=== PATIENT | female | born 1985 | race African-American/Black ===

== ENCOUNTER 2018-05-25 20:23 | Emergency (ER) | payer OTHER ==
[~2018-05-25] VITALS: Ht 157.5 cm; Wt 84.4 kg
[2018-05-25] MEDS ORDERED: IV NORMAL SALINE 1000ML BAG 1,000 ML IV ONE (20:45)
--- NOTE | 2018-05-25 21:16 | PHYS DOC ---
Past Medical History Past Medical History: Bipolar, Schizophrenia Additional Past Medical Histor: epilepsy Adult General Chief Complaint Chief Complaint: SEIZURE HPI HPI Patient is a 32 year old female with a past medical history of epilepsy, bipolar disorder, schizophrenia who presents via EMS after having seizure activity. The patient notes she was talking to the police and they told her to "put her hands behind her back" the patient notes she then began having generalized tonic-clonic movements and as per her daughter they then opened the back door to a vehicle and pushed her into the vehicle where she proceeded to shake for 1-2 minutes on the back seat and then stopped spontaneously intervention. The patient notes she did not have loss of bowel or bladder during this event. The patient notes her last seizure was in August 2017. The patient takes Keppra, Topamax, Onfi for her epilepsy. The patient sees her neurologist Dr. Livingston monthly and last saw him today. Review of Systems Review of Systems Constitutional: Denies fever or chills [] Eyes: Denies change in visual acuity, redness, or eye pain [] HENT: Denies nasal congestion or sore throat [] Respiratory: Denies cough or shortness of breath [] Cardiovascular: Denies chest pain or palpitations[] GI: Denies abdominal pain, nausea, vomiting, bloody stools or diarrhea [] : Denies dysuria or hematuria [] Musculoskeletal: Denies back pain or joint pain [] Integument: Denies rash or skin lesions [] Neurologic: Denies headache, focal weakness or sensory changes [] Complete systems were reviewed and found to be within normal limits, except as documented in this note. Current Medications Current Medications Current Medications Medications (Trade) Dose Ordered Sig/Nader Start Time Stop Time Status Last Admin Dose Admin Albuterol/ Ipratropium (Duoneb) 3 ml 1X ONCE 05/25/18 21:30 05/25/18 21:31 UNV Sodium Chloride 1,000 ml @ 1,000 mls/hr 1X ONCE 05/25/18 20:45 05/25/18 21:44 UNV Physical Exam Physical Exam Constitutional: Well developed, well nourished, no acute distress, non-toxic appearance. [] HENT: Normocephalic, atraumatic, oropharynx moist, no oral exudates, nose normal. [] Eyes: PERRL, EOMI, conjunctiva normal, no discharge. [] Neck: Normal range of motion, no tenderness, supple, no meningismus. [] Cardiovascular:Heart rate regular rhythm, no murmur [] Lungs & Thorax: Bilateral breath sounds clear to auscultation [] Abdomen: soft, nondistended, no tenderness. [] Skin: Warm, dry, no erythema, no rash. [] Back: No tenderness, no CVA tenderness. [] Extremities: No tenderness, no cyanosis, no clubbing, ROM intact, no edema. [] Neurologic: Alert and oriented X 3, normal motor function, normal sensory function, no focal deficits noted, cranial nerves II-XII intact bilaterally. [] Psychologic: Affect normal, judgement normal, mood normal. [] Current Patient Data Lab Values Laboratory Tests Test 05/25/18 21:25 05/25/18 21:35 05/25/18 21:48 White Blood Count 6.3 x10^3/uL (4.0-11.0) Red Blood Count 4.18 x10^6/uL (3.50-5.40) Hemoglobin 11.8 g/dL (12.0-15.5) L Hematocrit 35.1 % (36.0-47.0) L Mean Corpuscular Volume 84 fL (79-100) Mean Corpuscular Hemoglobin 28 pg (25-35) Mean Corpuscular Hemoglobin Concent 34 g/dL (31-37) Red Cell Distribution Width 16.4 % (11.5-14.5) H Platelet Count 310 x10^3/uL (140-400) Neutrophils (%) (Auto) 50 % (31-73) Lymphocytes (%) (Auto) 41 % (24-48) Monocytes (%) (Auto) 5 % (0-9) Eosinophils (%) (Auto) 3 % (0-3) Basophils (%) (Auto) 1 % (0-3) Neutrophils # (Auto) 3.1 x10^3uL (1.8-7.7) Lymphocytes # (Auto) 2.6 x10^3/uL (1.0-4.8) Monocytes # (Auto) 0.3 x10^3/uL (0.0-1.1) Eosinophils # (Auto) 0.2 x10^3/uL (0.0-0.7) Basophils # (Auto) 0.1 x10^3/uL (0.0-0.2) Sodium Level 139 mmol/L (136-145) Potassium Level 3.2 mmol/L (3.5-5.1) L Chloride Level 104 mmol/L (98-107) Carbon Dioxide Level 21 mmol/L (21-32) Anion Gap 14 (6-14) Blood Urea Nitrogen 14 mg/dL (7-20) Creatinine 1.0 mg/dL (0.6-1.0) Estimated GFR (Cockcroft-Gault) 77.7 BUN/Creatinine Ratio 14 (6-20) Glucose Level 105 mg/dL (70-99) H Lactic Acid Level 1.1 mmol/L (0.4-2.0) Calcium Level 9.0 mg/dL (8.5-10.1) Magnesium Level 2.1 mg/dL (1.8-2.4) Total Bilirubin 0.2 mg/dL (0.2-1.0) Aspartate Amino Transferase (AST) 16 U/L (15-37) Alanine Aminotransferase (ALT) 31 U/L (14-59) Alkaline Phosphatase 77 U/L (46-116) Creatine Kinase 138 U/L (26-192) Total Protein 8.7 g/dL (6.4-8.2) H Albumin 3.9 g/dL (3.4-5.0) Albumin/Globulin Ratio 0.8 (1.0-1.7) L Ethyl Alcohol Level < 10 mg/dL (0-10) Urine Collection Type Unknown Urine Color Yellow Urine Clarity Clear Urine pH 6.0 Urine Specific Gurley 1.025 Urine Protein Negative mg/dL (NEG-TRACE) Urine Glucose (UA) Negative mg/dL (NEG) Urine Ketones (Stick) Negative mg/dL (NEG) Urine Blood Large (NEG) Urine Nitrite Negative (NEG) Urine Bilirubin Negative (NEG) Urine Urobilinogen Dipstick 1.0 mg/dL (0.2 mg/dL) Urine Leukocyte Esterase Negative (NEG) Urine RBC Rare /HPF (0-2) Urine WBC Occ /HPF (0-4) Urine Squamous Epithelial Cells Many /LPF Urine Bacteria Few /HPF (0-FEW) Urine Mucus Marked /LPF Urine Opiates Screen Neg (NEG) Urine Methadone Screen Neg (NEG) Urine Barbiturates Neg (NEG) Urine Phencyclidine Screen Neg (NEG) Urine Amphetamine/Methamphetamine Neg (NEG) Urine Benzodiazepines Screen Pos (NEG) Urine Cocaine Screen Neg (NEG) Urine Cannabinoids Screen Neg (NEG) Urine Ethyl Alcohol Neg (NEG) POC Urine HCG, Qualitative Hcg negative (Negative) Laboratory Tests 05/25/18 21:25 Laboratory Tests 05/25/18 21:25 EKG EKG [] Radiology/Procedures Radiology/Procedures [] Course & Med Decision Making Course & Med Decision Making 32-year-old female presents via EMS after procedure activity. Patient was talking to the police when she started having generalized tonic-clonic minutes. Patient was helped into the back of a car where she continued to have shaking for 1-2 minutes. Patient denies loss of bowel or bladder during this episode and has no recollection. Patient does have history of epilepsy controlled by Anaya Seth, on the and reports her last seizure was in August 2017. Labs were collected and reviewed. [] Dragon Disclaimer Dragon Disclaimer This electronic medical record was generated, in whole or in part, using a voice recognition dictation system. Departure Departure Impression: Primary Impression: Breakthrough seizure Additional Impression: Hypokalemia Disposition: 01 HOME, SELF-CARE Condition: IMPROVED Referrals: YONATHAN JONES MD (PCP) PAOLO AZUL MD Patient Instructions: Hypokalemia-Brief, Potassium Content of Foods, Seizure, Adult, [id number] Additional Instructions: Refrain from driving until you have been seizure free for 6 months or until cleared by your doctor. Increase your food to include foods that are rich in potassium. Problem Qualifiers YONATHAN AGARWAL DO May 25, 2018 21:16
[2018-05-25] MEDS ORDERED: IPRATRPIUM/ALBUTEROL 0.5/2.5MG 3 ML NEBU. NEB ONE (21:30)
[2018-05-25 21:41] LABS: BASO # 0.1 x10^3/uL (0.0-0.2); BASO % 1 % (0-3); EOS # 0.2 x10^3/uL (0.0-0.7); EOS % 3 % (0-3); HEMATOCRIT 35.1 % (36.0-47.0); HEMOGLOBIN 11.8 g/dL (12.0-15.5); LYMPH # 2.6 x10^3/uL (1.0-4.8); LYMPH % 41 % (24-48); MEAN CORPUSCULAR HEMOGLOBIN 28 pg (25-35); MEAN CORPUSCULAR HGB CONC 34 g/dL (31-37); MEAN CORPUSCULAR VOLUME 84 fL (79-100); MONO # 0.3 x10^3/uL (0.0-1.1); MONO % 5 % (0-9); NEUT # 3.1 x10^3uL (1.8-7.7); NEUT % 50 % (31-73); PLATELET COUNT 310 x10^3/uL (140-400); RED BLOOD COUNT 4.18 x10^6/uL (3.50-5.40); RED CELL DISTRIBUTION WIDTH 16.4 % (11.5-14.5); WHITE BLOOD COUNT 6.3 x10^3/uL (4.0-11.0)
[2018-05-25 21:51] LABS: GFR 77.7; POTASSIUM 3.2 mmol/L (3.5-5.1)
[2018-05-25 21:56] LABS: BILIRUBIN,URINE NEGATIVE (NEG); COLOR,URINE YELLOW; NITRITE,URINE NEGATIVE (NEG); PROTEIN,URINE NEGATIVE (NEG-TRACE)
[2018-05-25 21:58] LABS: ALBUMIN 3.9 g/dL (3.4-5.0); ALBUMIN/GLOBULIN RATIO 0.8 (1.0-1.7); MAGNESIUM 2.1 mg/dL (1.8-2.4); TOTAL BILIRUBIN 0.2 mg/dL (0.2-1.0); TOTAL PROTEIN 8.7 g/dL (6.4-8.2)
[2018-05-25 22:01] LABS: CLARITY,URINE CLEAR
[2018-05-25 22:07] LABS: AMPHETAMINE/METHAMPHETAMINE NEG (NEG); BACTERIA,URINE FEW /HPF (0-FEW); BARBITURATES NEG (NEG); BENZODIAZEPINES POS (NEG); CANNABINOIDS NEG (NEG); COCAINE NEG (NEG); METHADONE NEG (NEG); OPIATES NEG (NEG); PHENCYCLIDINE NEG (NEG); RBC,URINE RARE /HPF (0-2); SQUAMOUS EPITHELIAL CELL,UR MANY /LPF; WBC,URINE OCC /HPF (0-4)
[2018-05-25 22:15] VITALS: BP 114/70
[2018-05-25] MEDS ORDERED: POTASSIUM CHLORIDE 20 MEQ TABLET.ER. PO ONE (22:30)
== END 2018-05-25 22:30 | disposition home or self-care (01) ==
LOC: ER 20:23
DX: R56.9 Unspecified convulsions (principal); E87.6 Hypokalemia; F31.9 Bipolar disorder, unspecified; F20.9 Schizophrenia, unspecified; G40.909 Epilepsy, unspecified, not intractable, without status epilepticus
CPT/HCPCS: 36415; 80053; 80307; 81001; 81025; 82550; 83605; 83735; 85025; 99284; G0480; G0479

== ENCOUNTER 2019-04-28 16:01 | Emergency (ER) | payer MEDICARE, OTHER ==
[~2019-04-28] VITALS: Ht 152.4 cm; Wt 85.7 kg
[2019-04-28 16:01] VITALS: BP 102/65
--- NOTE | 2019-04-28 16:27 | PHYS DOC ---
Past Medical History Past Medical History: Bipolar, Seizure, Schizophrenia Additional Past Medical Histor: epilepsy (MORRIS BHARDWAJ APRN) Past Surgical History: Cholecystectomy, Tubal ligation (MORRIS BHARDWAJ APRN) Alcohol Use: None Drug Use: None (MORRIS BHARDWAJ APRN) Adult General Chief Complaint Chief Complaint: SEIZURE HPI HPI Patient is a 33 year old female with a history of bipolar, schizophrenia, seizures, who presents from [facility] by EMS for seizures. Patient states she went to [facility] to shop for her kids as well as get refills on her seizure medications, she states when she got to the pharmacy they told her they cannot refill one of her seizure medications. She states she told them she is going to have a seizure because she will miss today's evening dose of one of the seizure medications . She states [facility] and was brought to the ED today to be evaluated. She states the seizure lasted for a few seconds. She states she did not urinate on herself. She arrives in the ED very heated. She states she hates this state [facility] because of the rules they have regarding state insured patients. She states she wants to move out of this states. She appears to be in a manic state of bipolar as she speaks. She is denying any suicidal ideations though she keeps having flight of ideas. (MORRIS BHARDWAJ APRN) Review of Systems Review of Systems Constitutional: Denies fever or chills [] Eyes: Denies change in visual acuity, redness, or eye pain [] HENT: Denies nasal congestion or sore throat [] Respiratory: Denies cough or shortness of breath [] Cardiovascular: No additional information not addressed in HPI [] GI: Denies abdominal pain, nausea, vomiting, bloody stools or diarrhea [] : Denies dysuria or hematuria [] Musculoskeletal: Denies back pain or joint pain [] Integument: Denies rash or skin lesions [] Neurologic: Reports seizure. Denies headache, focal weakness or sensory changes [] All other systems were reviewed and found to be within normal limits, except as documented in this note. (MORRIS BHARDWAJ APRN) Allergies Allergies Allergies Coded Allergies Type Severity Reaction Last Updated Verified No Known Drug Allergies 05/25/18 No (YONATHAN AGARWAL DO) Physical Exam Physical Exam Constitutional: Well developed, well nourished, no acute distress, non-toxic appearance. [] HENT: Normocephalic, atraumatic, bilateral external ears normal, oropharynx moist, no oral exudates, nose normal. [] Eyes: PERRLA, EOMI, conjunctiva normal, no discharge. [] Neck: Normal range of motion, no tenderness, supple, no stridor. [] Cardiovascular:Heart rate regular rhythm, no murmur [] Lungs & Thorax: Bilateral breath sounds clear to auscultation [] Abdomen: Bowel sounds normal, soft, no tenderness, no masses, no pulsatile masses. [] Skin: Warm, dry, no erythema, no rash. [] Back: No tenderness, no CVA tenderness. [] Extremities: No tenderness, no cyanosis, no clubbing, ROM intact, no edema. [] Neurologic: Alert and oriented X 3, normal motor function, normal sensory function, no focal deficits noted. Cranial nerves II through XII intact Psychologic: Affect normal, judgement normal, mood normal. [] (MORRIS BHARDWAJ APRN) Current Patient Data Vital Signs Vital Signs Date Time Temp Pulse Resp B/P (MAP) Pulse Ox O2 Delivery O2 Flow Rate FiO2 04/28/19 16:01 98.7 91 20 102/65 (77) 98 Room Air 98.7 (YONATHAN AGARWAL DO) EKG EKG [] (MORRIS BHARDWAJ APRN) Radiology/Procedures Radiology/Procedures [] (MORRIS BHARDWAJ APRN) Course & Med Decision Making Course & Med Decision Making Pertinent Labs and Imaging studies reviewed. (See chart for details) This is a 33-year-old female patient presenting to the ED today from [facility] to be evaluated for seizure. On arrival to the ED patient is refusing any workup she states she was seen by her doctor as [facility] and had labs drawn, she is requesting to be discharged AMA. She is alert and oriented �4, able to make her own decisions. She was given the risk of leaving AMA including and disability. Please see history of present illness for further information regarding her seizure. Amari from the PAT team was also available to talk to patient, she had signed out AMA. (MORRIS BHARDWAJ APRN) Dragon Disclaimer Dragon Disclaimer This electronic medical record was generated, in whole or in part, using a voice recognition dictation system. (MORRIS BHARDWAJ APRN) Departure Departure Impression: Primary Impression: Seizure Disposition: 07 AGAINST MEDICAL ADVICE Condition: STABLE Referrals: YONATHAN JONES MD (PCP) Attending Signature Attending Signature I have reviewed the PA/ECOLOGICAL MODELER's note and plan of care. I was available for consultation as needed during the patient's visit in the emergency department. I agree with the clinical impression, plan, and disposition. (YONATHAN AGARWAL DO) MORRIS BHARDWAJ APRN Apr 28, 2019 16:27 YONATHAN AGARWAL DO Apr 28, 2019 17:30
== END 2019-04-28 16:44 | disposition left against medical advice (07) ==
LOC: ER 16:01
DX: G40.909 Epilepsy, unspecified, not intractable, without status epilepticus (principal); F31.9 Bipolar disorder, unspecified; Z90.49 Acquired absence of other specified parts of digestive tract; Z98.51 Tubal ligation status
CPT/HCPCS: 99283

== ENCOUNTER → 2020-02-29 | Outpatient (CLI) | payer MEDICARE, OTHER ==
--- NOTE | 2020-02-29 12:27 | KCIC ---
EXAM: Chest, 2 views. HISTORY: Dyspnea on exertion. COMPARISON: 07/09/2017 FINDINGS: 2 views of the chest are obtained. There is no infiltrate, pleural effusion or pneumothorax. The heart is normal in size. There is a left vagal nerve stimulator. There is a calcified granuloma overlying the right lower thorax. IMPRESSION: No acute pulmonary finding. Electronically signed by: Lucy Love MD (02/29/2020 12:25 PM) [id number]
== END | disposition home or self-care (01) ==
LOC: KCIC 10:46
PROVIDERS: ATTEND Family Medicine
DX: J84.10 Pulmonary fibrosis, unspecified (principal); R06.00 Dyspnea, unspecified
CPT/HCPCS: 71046

== ENCOUNTER → 2020-03-05 | Outpatient (CLI) | payer MEDICARE, OTHER ==
[~2020-03-05] MED LIST: HYDR25CA PO; PRED20TA PO; ZOLPIDEM 5 MG TABLET. PO ONE
--- NOTE | 2020-03-07 14:07 | SLEEP ---
DATE OF STUDY: 03/05/2020 OBJECTIVE: The patient is a 34-year-old female with history of seizures, who is complaining of excessive somnolence. She has also had observed apnea. Height 5 feet 2 inches, weight 195 pounds, body mass index 36, Hampton sleep score 18. INTERPRETATION: The sleep architecture is characterized by a sleep efficiency of 63% across the 7.8 hours of recording time. There is absence of slow wave and REM sleep. The sleep onset latency is 2.7 hours. Respiratory monitoring shows a total of 2 events for an apnea-hypopnea index of 0. The minimum oxygen saturation is 88%. There are no periodic limb movements of sleep or cardiac arrhythmias. IMPRESSION: Normal polysomnogram showing no evidence of sleep apnea, but the sleep architecture is disturbed with an absence of slow-wave and REM sleep. RECOMMENDATIONS: 1. Consider for evaluation and treatment of idiopathic or psychophysiological insomnia. 2. Keep in mind the possibility of narcolepsy, but this study shows insufficient sleep during the one night in the lab and narcolepsy is probably unlikely. 3. Also, consider the role of her anticonvulsants causing excessive somnolence. 4. The patient should also avoid sedatives and alcohol and pursue weight loss. Thank you for letting us help with the patient's care. KELLEY CORDOVA MD DR: CATHLEEN/jamie JOB#: [id number] / [id number] YONATHAN Alvarez MD
== END ==
LOC: SLPLAB 19:02
PROVIDERS: ATTEND Family Medicine
DX: G47.30 Sleep apnea, unspecified (principal)
CPT/HCPCS: 95810

== ENCOUNTER → 2020-03-21 | Outpatient (CLI) | payer MEDICARE, OTHER ==
[~2020-03-21] MED LIST changes: +IOHEXOL 350 MG/ML 100 ML VIAL. IV ONE; -ZOLPIDEM 5 MG TABLET. PO ONE
--- NOTE | 2020-03-21 16:03 | RAD ---
Examination: CT angiogram of the chest History: history of shortness of breath COMPARISON: None available Technique: Axial CT angiographic images of the chest were performed with IV contrast. Coronal and sagittal 3-D MIP reformats are performed Exposure: One or more of the following individualized dose reduction techniques were utilized for this examination: 1. Automated exposure control 2. Adjustment of the mA and/or kV according to patient size 3. Use of iterative reconstruction technique FINDINGS: The visualized thyroid gland grossly appears unremarkable. Central airways are patent. Mild cardiomegaly. The caliber of the aorta grossly appears unremarkable. There are filling defects identified in the left lower lobe, right lower lobe pulmonary arterial branches likely multiple pulmonary emboli. Mild patchy bibasilar lung airspace opacity likely atelectasis or infiltrates. Mild bilateral lung emphysematous changes. The visualized liver, spleen, adrenals grossly appears unremarkable. IMPRESSION: 1. Filling defects identified in the right and left lower lobe pulmonary arterial branches likely multiple pulmonary emboli. 2. Bibasilar lung airspace opacities likely atelectasis or infiltrates. FOR INTERNAL CODING PURPOSES Critical result: Findings discussed with YONATHAN JONES at 03/21/2020 3:49 PM. RESULT CODE: (C) Electronically signed by: Sudarshan White MD (03/21/2020 4:00 PM) [id number]
== END | disposition home or self-care (01) ==
LOC: CT 15:00
PROVIDERS: ATTEND Family Medicine
DX: I28.8 Other diseases of pulmonary vessels (principal); R06.00 Dyspnea, unspecified; I51.7 Cardiomegaly
CPT/HCPCS: 71275; Q9967

== ENCOUNTER 2020-03-24 08:41 | Emergency (ER) | payer MEDICARE, OTHER ==
[~2020-03-24] VITALS: Ht 157.5 cm; Wt 100.0 kg
[2020-03-24 09:05] VITALS: BP 118/79
[2020-03-24] MEDS ORDERED: PRED20TA PO (09:13)
[2020-03-24] MEDS ORDERED: HYDR25CA PO (09:13)
--- NOTE | 2020-03-24 09:14 | PHYS DOC ---
Past Medical History Past Medical History: Bipolar, Seizure, Schizophrenia Additional Past Medical Histor: epilepsy Past Surgical History: Cholecystectomy, Tubal ligation Smoking Status: Never Smoker Alcohol Use: None Drug Use: None General Adult EDM: Chief Complaint: SKIN RASH/ABSCESS HPI: HPI: Patient is a 34-year-old female who presents with a rash all over her body. She states few days ago she had a CT scan with IV contrast and the rash started shortly after that. She denies any lip or tongue swelling she denies any difficulty breathing. She has not taken anything at home to help with the rash. [] Review of Systems: Review of Systems: Constitutional: Denies fever or chills. [] Eyes: Denies change in visual acuity. [] HENT: Denies nasal congestion or sore throat. [] Respiratory: Denies cough or shortness of breath. [] Cardiovascular: Denies chest pain or edema. [] GI: Denies abdominal pain, nausea, vomiting, bloody stools or diarrhea. [] : Denies dysuria. [] Musculoskeletal: Denies back pain or joint pain. [] Integument: Reports rash as described in HPI] Neurologic: Denies headache, focal weakness or sensory changes. [] Endocrine: Denies polyuria or polydipsia. [] Lymphatic: Denies swollen glands. [] Psychiatric: Denies depression or anxiety. [] Heart Score: Risk Factors: Risk Factors: DM, Current or recent (<one month) smoker, HTN, HLP, family history of CAD, obesity. Risk Scores: Score 0 - 3: 2.5% MACE over next 6 weeks - Discharge Home Score 4 - 6: 20.3% MACE over next 6 weeks - Admit for Clinical Observation Score 7 - 10: 72.7% MACE over next 6 weeks - Early Invasive Strategies Current Medications: Current Medications Medications (Trade) Dose Ordered Sig/Nader Start Time Stop Time Status Last Admin Dose Admin Methylprednisolone Sodium Succinate (SOLU-Medrol 125MG VIAL) 125 mg 1X ONCE 03/24/20 09:15 03/24/20 09:16 UNV Allergies: Allergies: Allergies Coded Allergies Type Severity Reaction Last Updated Verified Iodinated Contrast Media Allergy Unknown HIVES 03/24/20 Yes Physical Exam: PE: Constitutional: Well developed, well nourished, no acute distress, non-toxic appearance. [] HENT: Normocephalic, atraumatic, bilateral external ears normal, oropharynx moist, no oral exudates, nose normal. [] Eyes: PERRLA, EOMI, conjunctiva normal, no discharge. [] Neck: Normal range of motion, no tenderness, supple, no stridor. [] Cardiovascular:Heart rate regular rhythm, no murmur [] Lungs & Thorax: Bilateral breath sounds clear to auscultation [] Abdomen: Bowel sounds normal, soft, no tenderness, no masses, no pulsatile masses. [] Skin: Diffuse. [] Back: No tenderness, no CVA tenderness. [] Extremities: No tenderness, no cyanosis, no clubbing, ROM intact, no edema. [] Neurologic: Alert and oriented X 3, normal motor function, normal sensory function, no focal deficits noted. [] Psychologic: Affect normal, judgement normal, mood normal. [] EKG: EKG: [] Radiology/Procedures: Radiology/Procedures: [] Course & Med Decision Making: Course & Med Decision Making Pertinent Labs and Imaging studies reviewed. (See chart for details) [] Dragon Disclaimer: Dragon Disclaimer: This electronic medical record was generated, in whole or in part, using a voice recognition dictation system. Departure Departure Impression: Primary Impression: Allergic urticaria Disposition: 01 HOME, SELF-CARE Condition: STABLE Referrals: YONATHAN JONES MD (PCP) Patient Instructions: Drug Rash, Rash Scripts Hydroxyzine Pamoate (VISTARIL) 25 Mg Capsule 25 MG PO Q6HRS PRN for ALLERGIES, #30 CAP Prov: SAMREEN DOBBS DO 03/24/20 Prednisone (PREDNISONE) 20 Mg Tablet 1 TAB PO TID PRN for Allergic reaction, #21 TAB Prov: SAMREEN DOBBS DO 03/24/20 Justicifation of Admission Dx: Justifications for Admission: Justification of Admission Dx: No SAMREEN DOBBS DO Mar 24, 2020 09:14
[2020-03-24] MEDS ORDERED: diphenhydrAMINE HCL 25 MG CAPSULE PO ONE (09:15)
[2020-03-24] MEDS ORDERED: methylPREDNISolone SOD SUCC PF 125 MG/2 ML VIAL. IM ONE (09:15)
== END 2020-03-24 09:35 | disposition home or self-care (01) ==
LOC: ER 08:41
DX: L50.0 Allergic urticaria (principal); F31.9 Bipolar disorder, unspecified; F20.9 Schizophrenia, unspecified; G40.909 Epilepsy, unspecified, not intractable, without status epilepticus; Z91.041 Radiographic dye allergy status
CPT/HCPCS: 96372; 99283; J2930; Q0163

== ENCOUNTER → 2020-04-05 | Outpatient (CLI) | payer MEDICARE, OTHER ==
[2020-03-24 09:05] VITALS: BP 118/79
[~2020-04-05] MED LIST changes: -IOHEXOL 350 MG/ML 100 ML VIAL. IV ONE
[2020-04-11 06:13] LABS: ANTITHROMBIN III SEE SEPARATE REPORT; PROTEIN C ACTIVITY SEE SEPARATE REPORT; PROTEIN S ACTIVITY SEE SEPARATE REPORT
== END | disposition home or self-care (01) ==
LOC: LAB 13:37
PROVIDERS: ATTEND Internal Medicine Pulmonary Disease
DX: I26.99 Other pulmonary embolism without acute cor pulmonale (principal)
CPT/HCPCS: 85300; 85302; 85306

== ENCOUNTER → 2020-08-29 | Outpatient (CLI) | payer MEDICARE, OTHER ==
--- NOTE | 2020-09-02 14:56 | CARD ---
MR#: [id number] Date of Study: 08/29/2020 Ordering Physician: HUY ALVARADO, Referring Physician: HUY ALVARADO, Tech: Hyacinth Mireles [facility] APPROVED REPORT EXAM: Two-dimensional and M-mode echocardiogram with Doppler and color Doppler. Other Information Quality : FairHR: 60bpm Rhythm : NSR INDICATION Dyspnea 2D DIMENSIONS Left Atrium(2D)3.3 (1.6-4.0cm)IVSd1.3 (0.7-1.1cm) Aortic Root(2D)2.8 (2.0-3.7cm)LVDd2.7 (3.9-5.9cm) PWd1.2 (0.7-1.1cm) Aortic Valve AoV Peak Bakari.94.3cm/sAoV VTI25.6cm AO Peak GR.3.6mmHgLVOT Peak Bakari.77.7cm/s LVOT VTI 19.82cmAO Mean GR.2mmHg Mitral Valve MV E Vhrqgvbk30.8cm/sMV DECEL [id number] MV A Lnmjyicg24.5cm/sMV TYR54ox E/A Ratio1.7MVA (PHT)3.23cm2 Pulmonary Valve PV Peak Urywsznx66.1cm/sPV Peak Grad.3mmHg Tricuspid Valve TR P. Ttpwginv553so/sTR Peak Gr.31mmHg Pulmonary Vein S1 Zfiweqpu04.7cm/sD2 Fyauggoj55.8cm/s PVa [id number] LEFT VENTRICLE The left ventricle is normal size. There is mild concentric left ventricular hypertrophy. The left ve ntricular systolic function is normal. The ejection fraction is 60%. There is normal LV segmental wal l motion. The left ventricular diastolic function and filling is normal for age. RIGHT VENTRICLE The right ventricle is normal size. There is normal right ventricular wall thickness. The right ventr icular systolic function is normal. ATRIA The left atrium size is normal. The right atrium size is normal. The interatrial septum is intact wit h no evidence for an atrial septal defect or patent foramen ovale as noted on 2-D or Doppler imaging. AORTIC VALVE The aortic valve is normal in structure and function. Doppler and Color Flow revealed no significant aortic regurgitation. There is no significant aortic valvular stenosis. MITRAL VALVE The mitral valve is normal in structure and function. There is no evidence of mitral valve prolapse. There is no mitral valve stenosis. Doppler and Color-flow revealed mild mitral regurgitation. TRICUSPID VALVE The tricuspid valve is normal in structure and function. Doppler and Color Flow revealed trace tricus pid valve regurgitation. Estimated PAP 36 mmHg. PULMONIC VALVE The pulmonary valve is normal in structure and function. Doppler and Color Flow revealed trace pulmon ic valvular regurgitation. GREAT VESSELS The aortic root is normal in size. The ascending aorta is normal in size. The pulmonary artery is nor mal. The IVC is normal in size and collapses >50% with inspiration. PERICARDIAL EFFUSION There is no evidence of significant pericardial effusion. Critical Notification Critical Value: No <Conclusion> The left ventricular systolic function is normal. The ejection fraction is 60%. There is normal LV segmental wall motion. Trace tricuspid valve regurgitation. Estimated PAP 36 mmHg. There is no evidence of significant pericardial effusion. Signed by : Markel Main, Electronically Approved : 09/02/2020 14:56:02
== END ==
LOC: ECHO 09:32
PROVIDERS: ATTEND Internal Medicine Pulmonary Disease
DX: I34.0 Nonrheumatic mitral (valve) insufficiency (principal); R06.02 Shortness of breath
CPT/HCPCS: 93306

== ENCOUNTER → 2021-04-23 | Outpatient (CLI) | payer MEDICARE, OTHER ==
[~2021-04-23] MED LIST changes: +CLOB10TA PO; +DOCU100C28 PO; +ESCI10TA90 PO; +IBUP-1060 PO; +LEVE750T41 PO; +LEVO100T5 PO; +OXYC1TAB15 PO; +RIVA20TA2 PO; +ROSU10TA26 PO; +TOPI50TA8 PO
--- NOTE | 2021-04-24 15:00 | NUR ---
Called Shanon @ Dr Vazquez's office to notify patient is covid positive. Shanon is to call the patient and make sure she quarantines for 2 weeks. As long as patient is asymptomatic, okay to reschedule in 30 days with no retest.
== END ==
LOC: LAB 09:06
PROVIDERS: ATTEND Obstetrics & Gynecology
DX: Z01.812 Encounter for preprocedural laboratory examination (principal); Z20.822 Contact with and (suspected) exposure to COVID-19; N92.0 Excessive and frequent menstruation with regular cycle
CPT/HCPCS: U0003; U0005

== ENCOUNTER 2021-04-25 08:39 | Day surgery (SDC) | payer MEDICARE, OTHER ==
[~2021-04-25] VITALS: Ht 157.5 cm; Wt 94.5 kg
[~2021-04-25 08:39] MED LIST changes: -IBUP-1060 PO; -OXYC1TAB15 PO
--- NOTE | 2021-04-25 09:10 | PDOC1 ---
STUDENT SERVICES COORDINATOR H&P Date of Admission: Date of Admission: History of Present Illness: 35y presents for scheduled surgery. The pt was referred by her PCP Dr. Franklin for an endometrial ablation. She has had heavy bleeding with clots for the last 6-7 yrs. She was initially planning to have surgical intervention, but her PCP changed over the yrs. She began seeing a PCP at since her seizure were being managed at the same institute. At the jtac started her on OCPs which ultimately lead to a PE. She had an u/s (03/28/21) revealing an uterus measuring 12.3 x 4.9 x 4.4 cm. PMH: Seizure, Pulmonary embolus, Bipolar disorder with schizoaffective features, High cholesterol, Migraine headaches, Hypothyroidism, Morbid obesity, Major depression. PSH: Gallbladder , Brain Surgery Meds: escitalopram, rosuvastatin, Xarelto, Levothyroxine, Crestor, Keppra, Onfi, Topamax All: seizure meds (doesn't know the name), IV dye, penicillin, Depakote OBHx: 1st 7 month (complicated by seizures, ?PRES), TSVD x 3. Car Seat Maker: Periods : regular. control BTL. Menarche 12yo. SH: no tob, no EtOH FH: Allergies, Arthritis, Diabetes, HTN, Leukemia, Migaraine, Stomach Ulcer, Asthma Allergies: Coded Allergies: Iodinated Contrast Media (Verified Allergy, Intermediate, HIVES, 04/22/21) Penicillins (Verified Allergy, Intermediate, Hives, 04/22/21) divalproex sodium (Verified Allergy, Intermediate, Hives, 04/22/21) Physical Exam: PE: GENERAL: No apparent distress. Alert and oriented. HEENT: Head normocephalic, atraumatic. NECK: Supple LUNGS: Clear to auscultation. HEART: RRR, S1, S2 present, pulses intact ABDOMEN: Soft, positive bowel sounds. EXTREMITIES: No cyanosis or edema. NEUROLOGIC: Normal speech, normal tone PSYCHIATRIC: Normal affect, normal mood. SKIN: No ulceration. Assessment & Plan: A/P 35y with menorrhagia 1.) Menorrhagia - for last 6-7 yrs. Developed PE on medical management. Scheduled for ablation 2.) H/o PE - on Xarelto 3.) Seizure do - per neurology 4.) Schizophrenia, Bipolar, depression 5.) Hypothyroidism 6.) Contraception - BTL 7.) Car Seat Maker screening - pap(02/12/21) YONATHAN Merritt MD Apr 25, 2021 09:10
[2021-04-25] MEDS ORDERED: LIDOCAINE 2% PF 5 ML VIAL. ONE (09:52)
[2021-04-25] MEDS ORDERED: PROPOFOL 10 MG/ML (20ML) VIAL. IV ONE (09:52)
[2021-04-25] MEDS ORDERED: ONDANSETRON PF 4 MG/2 ML VIAL. ONE (09:52)
[2021-04-25] MEDS ORDERED: DEXAMETHASONE SOD PHOS 4 MG/ML VIAL ONE (09:52)
[2021-04-25] MEDS ORDERED: fentaNYL PF VIAL 100 MCG/2 ML VIAL ONE ×2 (09:53→12:00)
[2021-04-25] MEDS ORDERED: MIDAZOLAM HCL/PF 2 MG/2 ML VIAL. ONE (09:53)
[2021-04-25] MEDS ORDERED: SEVOFLURANE 61 TO 120 MINUTES. IH ONE (10:58)
[2021-04-25] MEDS ORDERED: IBUP-1060 PO (11:43)
[2021-04-25] MEDS ORDERED: OXYC1TAB15 PO (11:43)
[2021-04-25] MEDS ORDERED: oxyCODONE/APAP 5/325 1 TAB TABLET PO ONE (12:00)
[2021-04-25] MEDS: fentaNYL PF VIAL 100 MCG/2 ML VIAL IVP PRN ×2 (12:00→12:06)
[2021-04-25 12:02] VITALS: BP 115/69
--- NOTE | 2021-04-25 12:05 | PDOC4 ---
OPERATIVE NOTE: PreOp Dx: 1.) Menorrhagia, 2.) H/o PE, 3.) Seizure do, 4.) Schizophrenia, 5.) Bipolar, 6.) depression, 7.) Hypothyroidism Procedure: H/S, D&C, planned Novasure ablation Surgeon: Ebony Garnica Anesthesia: LMA EBL: 50 cc Fluids: 500 cc UOP: 30 cc Complication: Novasure would not expand when opened. This was either due to the novause being unable to reach the fundus and opening in the cervix or a false path was created. Fluid deficit 1150 by end of case. Findings: benign appearing endometrium, sound 12cm dimensions 5.5 length Path: endometrial curetting YONATHAN GARNICA MD Apr 25, 2021 12:05
[2021-04-25] MEDS ORDERED: PROCHLORPERAZINE 10 MG/2 ML VIAL. IVP PRN (12:15)
[2021-04-25] MEDS ORDERED: fentaNYL PF VIAL 100 MCG/2 ML VIAL IVP PRN (12:15)
[2021-04-25] MEDS ORDERED: IV RINGERS,LACTATED 1000ML 1,000 ML IV SCH (12:15)
[2021-04-25] MEDS ORDERED: HYDROmorphone 2 MG/ML VIAL IVP PRN (12:15)
[2021-04-25] MEDS ORDERED: MORPHINE SULFATE 2 MG/ML INJ. IVP PRN (12:15)
--- NOTE | 2021-04-25 15:52 | OP ---
DATE OF SURGERY: 04/25/2021 PREOPERATIVE DIAGNOSES: 1. Menorrhagia. 2. History of pulmonary embolism. 3. Seizure disorder. 4. Schizophrenia. 5. Bipolar disorder. 6. Depression. 7. Hypothyroidism. POSTOPERATIVE DIAGNOSES: 1. Menorrhagia. 2. History of pulmonary embolism. 3. Seizure disorder. 4. Schizophrenia. 5. Bipolar disorder. 6. Depression. 7. Hypothyroidism. PROCEDURES: Hysteroscopy, D and C with planned NovaSure ablation. SURGEON: Andrew Vazquez MD ANESTHESIA: LMA. ESTIMATED BLOOD LOSS: 50 mL. FLUIDS: 500 mL. URINE OUTPUT: 30 mL. COMPLICATIONS: NovaSure device would not expand when placed. This could be either due to the NovaSure not reaching the fundus and opening in the cervix or potentially a false pathway was created with the dilators. It was also noted that the fluid deficit was found to be 1150 mL by the end of the case. FINDINGS: Benign-appearing endometrium. Uterus sounded to 12 cm with a length ultimately of 5.5 cm. PATHOLOGY: Endometrial curettings. DESCRIPTION OF THE PROCEDURE: The patient was taken to the operating room where LMA was placed without difficulty. The patient was prepped and draped in a normal sterile fashion. A posterior weighted speculum was placed in the vagina and a right angle retractor was used to visualize the anterior lip of the cervix. The anterior lip of cervix was then grasped with a single-tooth tenaculum. The cervix was measured to be roughly 6.5 cm. The sound was placed to the uterine fundus and found to be approximately 12 cm. At that point, a hysteroscope was then placed. The endometrium appeared benign. At that point, the hysteroscope was removed and a curetting was performed in all 4 quadrants. The specimen was sent to pathology. At that point, the NovaSure was attempted to be placed, but the cervix required additional dilation to allow for the NovaSure to be placed. Once this had been performed, the NovaSure was then introduced into the cervix. Once it was opened, the width would not expand beyond 1 cm. This had me concerned that the NovaSure was either in the cervical canal or false pathway had been created. At that point, the NovaSure was removed and the hysteroscope was replaced. There were no obvious areas of a false pathway or of a perforation, so again the NovaSure was placed. Again, deploying the NovaSure did not expand beyond 1 cm. Also, at that point, it was noted that the fluid deficit was increasing. It was felt that the best option at that point was to terminate the procedure. At that point, the NovaSure was removed as well as the hysteroscope, the tenaculum was also removed with good hemostasis noted. At that point, the patient was brought to the recovery room in stable condition. TIANA/MILDRED/YASEMIN DR: Ariella TID: [id number] MTDD
--- NOTE | 2021-04-29 17:07 | PATHOLOGY ---
[facility] Accession Number: [id number] . 01 Material submitted: . endometrium - ENDOMETRIAL CURETTINGS . 01 Clinical history: . HYSTEROSCOPY D+C UNK . 02 Diagnosis: Endometrial curettings: - Secretory endometrium. ([facility]; 04/28/2021) [facility] 04/28/2021 1658 Local . 02 Comment: There is no atypia or evidence of malignancy. ([facility]; 04/28/2021) . 02 Electronically signed: . Natan Pinedo MD, Pathologist NPI- [id number] . 01 Gross description: . Received in formalin labeled "Brown, Yancy, endometrial curettings" is a 2.8 x 2.0 x 0.5 cm aggregate of red-brown friable soft tissue fragments. The specimen is submitted entirely in A1-A2. ([facility]; 04/26/2021) [facility] 04/26/2021 1123 Local . 02 Pathologist provided ICD-10: Z03.89 . 02 CPT . 301764 Specimen Comment: A courtesy copy of this report has been sent to [phone], [phone] Specimen Comment: [id number] Specimen Comment: Report sent to / DR JONES Performed at: 01 [facility] [address], [place] [id number] MD Roque Cifuentes MD Phone: [phone] Performed at: 02 [facility] [address] [place], [place] [id number] MD Natan Pinedo MD Phone: [phone]
== END 2021-04-25 12:34 | disposition home or self-care (01) ==
LOC: SURG 08:39
PROVIDERS: ATTEND Obstetrics & Gynecology
DX: N92.0 Excessive and frequent menstruation with regular cycle (principal); F20.9 Schizophrenia, unspecified; G40.909 Epilepsy, unspecified, not intractable, without status epilepticus; F32.9 Major depressive disorder, single episode, unspecified; E03.9 Hypothyroidism, unspecified; I10 Essential (primary) hypertension; E78.00 Pure hypercholesterolemia, unspecified; E66.9 Obesity, unspecified; M19.90 Unspecified osteoarthritis, unspecified site; Z79.899 Other long term (current) drug therapy; Z98.890 Other specified postprocedural states; Z20.822 Contact with and (suspected) exposure to COVID-19
CPT/HCPCS: 58558; 81025; 87426; A4930; J1100; J2250; J2405; J2704; J3010; U0003; U0005

== ENCOUNTER → 2021-05-28 | Outpatient (CLI) | payer MEDICARE, OTHER ==
[~2021-05-28] MED LIST changes: +IBUP-1060 PO; +OXYC1TAB15 PO
== END ==
LOC: LAB 09:50
PROVIDERS: ATTEND Obstetrics & Gynecology
DX: Z01.812 Encounter for preprocedural laboratory examination (principal); Z20.822 Contact with and (suspected) exposure to COVID-19
CPT/HCPCS: U0003; U0005

== ENCOUNTER 2021-05-30 06:08 | Observation (INO) | payer MEDICARE, OTHER ==
[~2021-05-30] VITALS: Ht 157.5 cm; Wt 94.0 kg
[2021-05-30] VITALS (10 sets, daily range): BP systolic 97–116; BP diastolic 65–71
[~2021-05-30 06:08] MED LIST changes: +HYDROmorphone 2 MG/ML VIAL IVP PRN; +IV RINGERS,LACTATED 1000ML 1,000 ML IV SCH; +MORPHINE SULFATE 2 MG/ML INJ. IVP PRN; +PROCHLORPERAZINE 10 MG/2 ML VIAL. IVP PRN; +fentaNYL PF VIAL 100 MCG/2 ML VIAL IVP PRN
[2021-05-30 06:50] LABS: BASO # 0.2 x10^3/uL (0.0-0.2); BASO % 3 % (0-3); EOS # 0.3 x10^3/uL (0.0-0.7); EOS % 5 % (0-3); HEMATOCRIT 28.6 % (36.0-47.0); HEMOGLOBIN 9.1 g/dL (12.0-15.5); LYMPH # 2.4 x10^3/uL (1.0-4.8); LYMPH % 38 % (24-48); MEAN CORPUSCULAR HEMOGLOBIN 25 pg (25-35); MEAN CORPUSCULAR HGB CONC 32 g/dL (31-37); MEAN CORPUSCULAR VOLUME 78 fL (79-100); MONO # 0.4 x10^3/uL (0.0-1.1); MONO % 6 % (0-9); NEUT % 48 % (31-73); PLATELET COUNT 263 x10^3/uL (140-400); RED BLOOD COUNT 3.65 x10^6/uL (3.50-5.40); RED CELL DISTRIBUTION WIDTH 18.3 % (11.5-14.5); WHITE BLOOD COUNT 6.2 x10^3/uL (4.0-11.0)
[2021-05-30 06:57] LABS: CALCIUM 8.6 mg/dL (8.5-10.1); CREATININE 1.1 mg/dL (0.6-1.0); GFR 68.4; POTASSIUM 3.6 mmol/L (3.5-5.1)
[2021-05-30] MEDS ORDERED: METHYLENE BLUE 0.5% 10ml AMPULE. ONE (06:57)
[2021-05-30] MEDS ORDERED: PROPOFOL 10 MG/ML (20ML) VIAL. IV ONE (07:24)
[2021-05-30] MEDS ORDERED: LIDOCAINE 2% PF 5 ML VIAL. ONE (07:24)
[2021-05-30] MEDS ORDERED: fentaNYL PF VIAL 250 MCG/5 ML VIAL ONE (07:25)
[2021-05-30] MEDS ORDERED: MIDAZOLAM HCL/PF 2 MG/2 ML VIAL. ONE (07:25)
[2021-05-30] MEDS ORDERED: ROCURONIUM 50 MG/5 ML VIAL. ONE ×2 (07:25→09:08)
--- NOTE | 2021-05-30 07:49 | PDOC1 ---
CLAIMS ADJUSTER H&P Date of Admission: Date of Admission: History of Present Illness: 35y presents for scheduled surgery. The pt was referred for heavy bleeding with clots for the last 6-7 yrs. At the desktop analyst started her on OCPs which ultimately lead to a PE. She had an u/s (03/28/21) revealing an uterus measuring 12.3 x 4.9 x 4.4 cm. She ultimately was scheduled for an Ablation on 04/25/21 but the procedure could not be activated. At her f/u appt the decision was made for a LAVH. PMH: Seizure, Pulmonary embolus, Bipolar disorder with schizoaffective features, High cholesterol, Migraine headaches, Hypothyroidism, Morbid obesity, Major depression. PSH: Gallbladder , Brain Surgery Meds: escitalopram, rosuvastatin, Xarelto, Levothyroxine, Crestor, Keppra, Onfi, Topamax All: seizure meds (doesn't know the name), IV dye, penicillin, Depakote OBHx: 1st 7 month (complicated by seizures, ?PRES), TSVD x 3. Core Sucker: Periods : regular. control BTL. Menarche 12yo. SH: no tob, no EtOH FH: Allergies, Arthritis, Diabetes, HTN, Leukemia, Migraine, Stomach Ulcer, Asthma Medications: Meds: Current Medications Medications (Trade) Dose Ordered Sig/Nader Route PRN Reason Start Time Stop Time Status Last Admin Dose Admin Ringer's Solution 1,000 ml @ 30 mls/hr Q24H IV 05/30/21 06:00 05/30/21 17:59 05/30/21 07:08 Allergies: Coded Allergies: Iodinated Contrast Media (Verified Allergy, Intermediate, HIVES, 05/30/21) Penicillins (Verified Allergy, Intermediate, Hives, 05/30/21) divalproex sodium (Verified Allergy, Intermediate, Hives, 05/30/21) Physical Exam: Vital Signs: Vital Signs Date Time Temp Pulse Resp B/P (MAP) Pulse Ox O2 Delivery O2 Flow Rate FiO2 05/30/21 06:29 97.0 79 20 94/65 97 Room Air 97.0 PE: GENERAL: No apparent distress. Alert and oriented. HEENT: Head normocephalic, atraumatic. NECK: Supple LUNGS: Clear to auscultation. HEART: RRR, S1, S2 present, pulses intact ABDOMEN: Soft, positive bowel sounds. EXTREMITIES: No cyanosis or edema. NEUROLOGIC: Normal speech, normal tone PSYCHIATRIC: Normal affect, normal mood. SKIN: No ulceration. Labs: Laboratory Tests Test 05/30/21 06:23 05/30/21 06:32 POC Urine HCG, Qualitative Hcg negative (Negative) White Blood Count 6.2 x10^3/uL (4.0-11.0) Red Blood Count 3.65 x10^6/uL (3.50-5.40) Hemoglobin 9.1 g/dL (12.0-15.5) L Hematocrit 28.6 % (36.0-47.0) L Mean Corpuscular Volume 78 fL (79-100) L Mean Corpuscular Hemoglobin 25 pg (25-35) Mean Corpuscular Hemoglobin Concent 32 g/dL (31-37) Red Cell Distribution Width 18.3 % (11.5-14.5) H Platelet Count 263 x10^3/uL (140-400) Neutrophils (%) (Auto) 48 % (31-73) Lymphocytes (%) (Auto) 38 % (24-48) Monocytes (%) (Auto) 6 % (0-9) Eosinophils (%) (Auto) 5 % (0-3) H Basophils (%) (Auto) 3 % (0-3) Neutrophils # (Auto) 3.0 x10^3/uL (1.8-7.7) Lymphocytes # (Auto) 2.4 x10^3/uL (1.0-4.8) Monocytes # (Auto) 0.4 x10^3/uL (0.0-1.1) Eosinophils # (Auto) 0.3 x10^3/uL (0.0-0.7) Basophils # (Auto) 0.2 x10^3/uL (0.0-0.2) Sodium Level 139 mmol/L (136-145) Potassium Level 3.6 mmol/L (3.5-5.1) Chloride Level 105 mmol/L (98-107) Carbon Dioxide Level 23 mmol/L (21-32) Anion Gap 11 (6-14) Blood Urea Nitrogen 6 mg/dL (7-20) L Creatinine 1.1 mg/dL (0.6-1.0) H Estimated GFR (Cockcroft-Gault) 68.4 Glucose Level 114 mg/dL (70-99) H Calcium Level 8.6 mg/dL (8.5-10.1) Laboratory Tests 05/30/21 06:32 Laboratory Tests 05/30/21 06:32 Laboratory Tests 05/30/21 06:32 Assessment & Plan: A/P 35y with menorrhagia 1.) Menorrhagia - for last 6-7 yrs. Developed PE on medical management. Attempted ablation 04/25/21. Scheduled for 2.) H/o PE - on Xarelto 3.) Seizure do - per neurology 4.) Schizophrenia, Bipolar, depression 5.) Hypothyroidism 6.) Contraception - BTL 7.) Core Sucker screening - pap(02/12/21) YONATHAN Merritt MD May 30, 2021 07:49
[2021-05-30] MEDS ORDERED: ONDANSETRON PF 4 MG/2 ML VIAL. ONE (08:56)
[2021-05-30] MEDS ORDERED: DEXAMETHASONE SOD PHOS 4 MG/ML VIAL ONE (08:56)
[2021-05-30] MEDS ORDERED: GLYCOPYRROLATE 1 MG/5 ML VIAL. ONE (08:57)
[2021-05-30] MEDS ORDERED: NEOSTIGMINE METHYLSULFATE 5 MG/5 ML SYRINGE. ONE (08:57)
[2021-05-30] MEDS ORDERED: ePHEDrine PF IN SALINE 50 MG/10 ML SYRINGE. IV ONE (09:09)
[2021-05-30] MEDS ORDERED: PHENYLEPHRINE in 0.9% NACL PF 1 MG/10 ML SYRINGE. IV ONE (09:09)
[2021-05-30] MEDS ORDERED: PHENYLEPHRINE 10 MG/ML VIAL. ONE (09:28)
[2021-05-30] MEDS ORDERED: SUGAMMADEX SODIUM 200 MG/2 ML VIAL. IVP ONE (10:00)
[2021-05-30] MEDS ORDERED: KETOROLAC 30 MG/ML VIAL. ONE (10:10)
[2021-05-30] MEDS ORDERED: oxyCODONE/APAP 5/325 1 TAB TABLET PO PRN (10:30)
[2021-05-30] MEDS ORDERED: IV NORMAL SALINE 1000ML BAG 1,000 ML IV SCH (10:30)
[2021-05-30] MEDS ORDERED: 0.9 % SODIUM CHLORIDE 10 ML DISP.SYRIN. IV PRN (10:30)
[2021-05-30] MEDS ORDERED: KETOROLAC 15 MG/ML VIAL. IV PRN (10:30)
[2021-05-30] MEDS ORDERED: IBUPROFEN 200 MG TABLET. PO PRN (10:30)
[2021-05-30] MEDS ORDERED: diphenhydrAMINE 50 MG/ML VIAL IV PRN (10:30)
[2021-05-30] MEDS ORDERED: NALOXONE 0.4 MG/ML VIAL. IV PRN (10:30)
[2021-05-30] MEDS ORDERED: diphenhydrAMINE HCL 25 MG CAPSULE PO PRN (10:30)
[2021-05-30] MEDS ORDERED: DEXTROSE 50% 25 GM / 50ML DISP.SYRIN. IV PRN (10:30)
[2021-05-30] MEDS ORDERED: IV DEXTROSE 5 %-0.45 % NACL 1,000 ML IV SCH (10:30)
--- NOTE | 2021-05-30 10:30 | PDOC4 ---
OPERATIVE NOTE: PreOp Dx: 1.) Menorrhagia, 2.) H/o PE, 3.) Seizure do, 4.) Schizophrenia, Bipolar, depression, 5.) Hypothyroidism PostOp Dx: same Procedure: LAVH/BS Surgeon: Ebony Garnica Anesthesia: GETA EBL: 500 cc Fluids: 1800 UOP: 250 cc Findings: Fibroid uterus, nml tubes and ovaries Complications: None Specimen: Uterus, bilateral tubes, and cervix YONATHAN GARNICA MD May 30, 2021 10:30
[2021-05-30] MEDS ORDERED: fentaNYL PF VIAL 100 MCG/2 ML VIAL ONE (10:46)
[2021-05-30] MEDS: fentaNYL PF VIAL 100 MCG/2 ML VIAL IVP PRN ×2 (10:53→11:15)
[2021-05-30] MEDS: MORPHINE SULFATE 2 MG/ML INJ. IV PRN ×4 (10:54→15:51)
[2021-05-30] MEDS ORDERED: MORPHINE SULFATE 2 MG/ML INJ. IVP PRN (11:00)
[2021-05-30] MEDS ORDERED: IV RINGERS,LACTATED 1000ML 1,000 ML IV SCH (11:00)
[2021-05-30] MEDS ORDERED: PROCHLORPERAZINE 10 MG/2 ML VIAL. IVP PRN (11:00)
[2021-05-30] MEDS: DOCUSATE SODIUM 100 MG CAPSULE. PO SCH ×2 (11:00→21:00)
[2021-05-30] MEDS ORDERED: fentaNYL PF VIAL 100 MCG/2 ML VIAL IVP PRN (11:00)
[2021-05-30] MEDS ORDERED: HYDROmorphone 2 MG/ML VIAL IVP PRN (11:00)
--- NOTE | 2021-05-30 11:30 | NUR ---
Pt. arrives on floor from PACU, VSS, states pain is a 5 at this time. Mother to arrive shortly. Belongings accompany pt.
--- NOTE | 2021-05-30 11:55 | OP ---
DATE OF SURGERY: 05/30/2021 PREOPERATIVE DIAGNOSES: 1. Menorrhagia. 2. History of pulmonary embolism. 3. Seizure disorder. 4. Schizophrenia, bipolar, depression. 5. Hypothyroidism. POSTOPERATIVE DIAGNOSES: 1. Menorrhagia. 2. History of pulmonary embolism. 3. Seizure disorder. 4. Schizophrenia, bipolar, depression. 5. Hypothyroidism. PROCEDURE: Laparoscopic-assisted vaginal hysterectomy with bilateral salpingectomy. SURGEON: Andrew Vazquez MD ANESTHESIA: General endotracheal intubation. ESTIMATED BLOOD LOSS: 500 mL FLUIDS: 1800 mL URINE OUTPUT: 250 mL FINDINGS: Enlarged uterus, normal tubes and ovaries. COMPLICATIONS: None. SPECIMENS: Removed uterus, bilateral tubes and cervix. DESCRIPTION OF PROCEDURE: The patient was taken to the operating room where general endotracheal intubation was obtained without difficulty. The patient was prepped and draped in normal sterile fashion. Attention was first turned to the vagina where a speculum was placed to visualize the cervix. Anterior lip of the cervix was then grasped with a single tooth tenaculum. An acorn uterine manipulator was then placed into the uterine cavity. At that point, the speculum was removed. The Medel catheter was then placed in the patient's vagina. Attention was then turned to the abdomen where a 5 mm skin incision was made in her intraumbilical fold. A Veress needle was then introduced into the incision. The opening pressure was found to be greater than 15 mmHg, so it was felt that this was not in her peritoneal cavity. Veress needle was removed and a 5 mm trocar was directly placed into the abdomen. Intraabdominal placement was confirmed with laparoscope. At that point, the abdomen was insufflated to 15 mmHg. At that point, a second trocar was then placed on the left approximately two-thirds between the ischial spine and the umbilicus first by making a 5 mm skin incision, then by placing a 5 mm trocar under direct visualization of laparoscope. Attention was then turned to the right side where a 5 mm trocar was then placed in similar fashion approximately two-thirds between the ischial spine and the umbilicus first by making a 5 mm skin incision, then by placing the 5 mm trocar under direct visualization of the laparoscope. Visualization of the pelvis revealed an enlarged uterus, otherwise normal anatomy. At that point, attention was turned to the left tube, which was followed out to the fimbria. The fimbria was then grasped and the tube was then from the ovary with LigaSure device. Once the tube was from the ovary to the level of the uterus, the LigaSure device was used to cut through the round ligament on the left. The LigaSure device was then used to serially coagulate and cut to the level of the uterine arteries. At that point, the peritoneum was undermined to allow for the creation of a bladder flap. The bladder flap was then brought to the midline. A few additional bites were then taken of the uterine pedicles on the left with the LigaSure device. Attention was then turned to the right where the right tube was followed out to the fimbria. The fimbria was then grasped. The tube was then from the right ovary with LigaSure device. When the separation had reached the level of the uterus, attention was then turned to the round ligament, which was cut with the LigaSure device. The uterine pedicles were then serially coagulate and cut to the level of the uterine artery. At that point, the peritoneum was undermined to complete the bladder flap. A few additional bites were then taken on the right. At that point, good hemostasis was noted. The instruments were removed and attention was turned to the vagina. At that point, the uterus was serially clamped and cut until all pedicles were free. At that point, the uterus was delivered. Good hemostasis was noted. The vaginal cuff was then closed first by making a aeehag-vw-zvqtp stitch on the left with a second pass including the left uterosacral ligament. This was then tagged. Attention was turned to the right side where a dssjid-ta-lufph stitch was then placed at the lateral edge with a second pass including the right uterosacral ligament. Two additional lihjix-ud-ixsmy stitches were used to close the cuff. The cuff was irrigated. Good hemostasis was noted. At that point, all the stitches were cut. Attention was then turned to the abdomen. Once again, the survey of the vaginal cuff laparoscopically revealed good hemostasis. At that point, the ureters were observed and found to be peristalsing. The peritoneum was then irrigated and good hemostasis was noted. At that point, the instruments were removed as well as the trocars. Laparoscopic incision was then closed with 4-0 Monocryl in interrupted fashion. The patient tolerated the procedure well and was taken to recovery room in stable condition. Sponges, laps and needles were correct x 3. Two grams of Ancef were given prior to the procedure. KEL DR: Ariella TID: [id number]
[2021-05-30] MEDS: CITALOPRAM 20 MG TABLET. PO SCH (13:00)
[2021-05-30] MEDS ORDERED: ATORVASTATIN CALCIUM 40 MG TABLET. PO SCH (21:00)
[2021-05-30] MEDS: TOPIRAMATE 25 MG TABLET. PO SCH (21:03)
[2021-05-30] MEDS: oxyCODONE/APAP 5/325 1 TAB TABLET PO PRN (21:03)
[2021-05-30] MEDS: levETIRAcetam 500 MG TABLET PO SCH (21:04)
[2021-05-31 00:10] VITALS: BP 103/64
[2021-05-31 04:11] VITALS: BP 95/60
[2021-05-31] MEDS: oxyCODONE/APAP 5/325 1 TAB TABLET PO PRN ×2 (05:33→09:38)
[2021-05-31 08:08] LABS: BASO % 1 % (0-3); EOS # 0.1 x10^3/uL (0.0-0.7); EOS % 2 % (0-3); HEMATOCRIT 26.1 % (36.0-47.0); HEMOGLOBIN 8.3 g/dL (12.0-15.5); LYMPH % 29 % (24-48); MEAN CORPUSCULAR HEMOGLOBIN 25 pg (25-35); MEAN CORPUSCULAR HGB CONC 32 g/dL (31-37); MEAN CORPUSCULAR VOLUME 79 fL (79-100); MONO # 0.4 x10^3/uL (0.0-1.1); MONO % 6 % (0-9); NEUT # 4.3 x10^3/uL (1.8-7.7); NEUT % 63 % (31-73); PLATELET COUNT 291 x10^3/uL (140-400); RED BLOOD COUNT 3.31 x10^6/uL (3.50-5.40); RED CELL DISTRIBUTION WIDTH 18.4 % (11.5-14.5); WHITE BLOOD COUNT 6.9 x10^3/uL (4.0-11.0)
[2021-05-31] MEDS: levETIRAcetam 500 MG TABLET PO SCH (08:13)
[2021-05-31] MEDS: TOPIRAMATE 25 MG TABLET. PO SCH (08:13)
[2021-05-31] MEDS: DOCUSATE SODIUM 100 MG CAPSULE. PO SCH (08:14)
[2021-05-31 08:19] LABS: CALCIUM 8.2 mg/dL (8.5-10.1); GFR 76.3; POTASSIUM 3.9 mmol/L (3.5-5.1)
[2021-05-31] MEDS: CITALOPRAM 20 MG TABLET. PO SCH (08:51)
[2021-05-31 09:00] VITALS: BP 112/67
[2021-05-31] MEDS ORDERED: LEVOTHYROXINE 100 MCG TABLET PO SCH (09:00)
[2021-05-31] MEDS ORDERED: OXYC1TAB15 PO (12:09)
[2021-05-31 13:45] VITALS: BP 116/72
--- NOTE | 2021-05-31 14:00 | NUR ---
out per w/c VSS
--- NOTE | 2021-05-31 15:10 | PDOC ---
PAPER PATTERN INSPECTOR PROGRESS NOTE Date of Service: DATE: 05/31/21 TIME: 15:06 Subjective: Pt with good pain control. Bernard[place] PO. Voiding. A little spotting Objective: Vital Signs: Vital Signs Date Time Temp Pulse Resp B/P (MAP) Pulse Ox O2 Delivery O2 Flow Rate FiO2 05/30/21 10:16 Mask 6 05/30/21 10:16 97.0 83 16 131/79 100 97.0 Vital Signs Date Time Temp Pulse Resp B/P (MAP) Pulse Ox O2 Delivery O2 Flow Rate FiO2 05/31/21 13:45 98.0 72 20 116/72 (87) 99 98.0 05/31/21 06:03 Room Air 05/30/21 15:00 2.0 Labs: Laboratory Tests Test 05/31/21 07:50 White Blood Count 6.9 x10^3/uL (4.0-11.0) Red Blood Count 3.31 x10^6/uL (3.50-5.40) L Hemoglobin 8.3 g/dL (12.0-15.5) L Hematocrit 26.1 % (36.0-47.0) L Mean Corpuscular Volume 79 fL (79-100) Mean Corpuscular Hemoglobin 25 pg (25-35) Mean Corpuscular Hemoglobin Concent 32 g/dL (31-37) Red Cell Distribution Width 18.4 % (11.5-14.5) H Platelet Count 291 x10^3/uL (140-400) Neutrophils (%) (Auto) 63 % (31-73) Lymphocytes (%) (Auto) 29 % (24-48) Monocytes (%) (Auto) 6 % (0-9) Eosinophils (%) (Auto) 2 % (0-3) Basophils (%) (Auto) 1 % (0-3) Neutrophils # (Auto) 4.3 x10^3/uL (1.8-7.7) Lymphocytes # (Auto) 2.0 x10^3/uL (1.0-4.8) Monocytes # (Auto) 0.4 x10^3/uL (0.0-1.1) Eosinophils # (Auto) 0.1 x10^3/uL (0.0-0.7) Basophils # (Auto) 0.0 x10^3/uL (0.0-0.2) Sodium Level 139 mmol/L (136-145) Potassium Level 3.9 mmol/L (3.5-5.1) Chloride Level 103 mmol/L (98-107) Carbon Dioxide Level 25 mmol/L (21-32) Anion Gap 11 (6-14) Blood Urea Nitrogen 5 mg/dL (7-20) L Creatinine 1.0 mg/dL (0.6-1.0) Estimated GFR (Cockcroft-Gault) 76.3 Glucose Level 108 mg/dL (70-99) H Calcium Level 8.2 mg/dL (8.5-10.1) L Laboratory Tests 05/31/21 07:50 Laboratory Tests 05/31/21 07:50 Laboratory Tests 05/31/21 07:50 Physical Exam: GENERAL: No apparent distress. Alert and oriented. HEENT: Head normocephalic, atraumatic. NECK: Supple LUNGS: Clear to auscultation. HEART: RRR, S1, S2 present, pulses intact ABDOMEN: Soft, positive bowel sounds. EXTREMITIES: No cyanosis or edema. NEUROLOGIC: Normal speech, normal tone PSYCHIATRIC: Normal affect, normal mood. SKIN: No ulceration. CTAB RRR S/NT/ND Inc: dressing dry no C/C/E Assessment & Plan: A/P 35y POD #1 s/p LAVH/BS 1.) PO - doing well 2.) Path pending 3.) Hgb 9.1 -> 8.3 4.) Indication - menorrhagia 5.) H/o PE - stopped Xarelto for surgery 6.) Seizure do - per neurology 7.) Schizophrenia, Bipolar, depression 8.) Hypothyroidism 9.) D/c home YONATHAN GARNICA MD May 31, 2021 15:10
--- NOTE | 2021-05-31 18:18 | DS ---
DATE OF DISCHARGE: 05/31/2021 ADMISSION DIAGNOSES: 1. Menorrhagia. 2. History of pulmonary embolism. 3. Seizure disorder. 4. Schizophrenia, bipolar disorder and depression. 5. Hypothyroidism. DISCHARGE DIAGNOSES: 1. Menorrhagia. 2. History of pulmonary embolism. 3. Seizure disorder. 4. Schizophrenia, bipolar disorder and depression. 5. Hypothyroidism. PROCEDURE: Laparoscopic-assisted vaginal hysterectomy with bilateral salpingectomy. BRIEF HOSPITAL COURSE: The patient is a 35-year-old 4, para 3-1-0-4, who presented for a laparoscopic-assisted vaginal hysterectomy on 05/30/2021. The patient initially had been referred for heavy bleeding with reporting the bleeding for the last 6-7 years with heavy clots. The patient was initially evaluated by [facility] where she was placed on oral contraceptive pills, they ultimately led to a pulmonary embolism. The patient was seen in the office in April and counseled on undergoing an ablation. The patient was scheduled for the procedure on 04/25/2021, the NovaSure was unable to be activated, so the patient was rescheduled for a LAVH at her followup visit. The patient underwent said procedure. See operative note for full detail. By postop day #1, the patient was meeting all discharge criteria and subsequently discharged home. Of note, the patient's hemoglobin on admission was found to be 9.1 and after surgery was found to be 8.3. The patient was also restarted on her home meds except for the Xarelto postoperatively. DISCHARGE INSTRUCTIONS: The patient was told not to lift anything greater than 20 pounds, have pelvic rest for 6 weeks, not to drive on narcotics. CALL IF: The patient was to call if she had fevers, chills, nausea, vomiting, abdominal pain or any additional questions or concerns. FOLLOWUP APPOINTMENT: The patient was to follow up on 06/06/2021 at 9:00 a.m. for a postop appointment. DISCHARGE MEDICATIONS: The patient was given a prescription for Percocet 5, 15 pills; Motrin 800 mg, 30 pills; Colace 100 mg, 30 pills and ferrous sulfate 325 mg, [address]: Ariella TID: [id number]
== END 2021-05-31 14:10 | disposition home or self-care (01) ==
LOC: SURG 06:08 → 3 SO LND 10:25
PROVIDERS: ADMIT Obstetrics & Gynecology; ATTEND Obstetrics & Gynecology
DX: N92.0 Excessive and frequent menstruation with regular cycle (principal); D25.9 Leiomyoma of uterus, unspecified; E11.9 Type 2 diabetes mellitus without complications; E03.9 Hypothyroidism, unspecified; E78.00 Pure hypercholesterolemia, unspecified; E66.01 Morbid (severe) obesity due to excess calories; F20.9 Schizophrenia, unspecified; F31.9 Bipolar disorder, unspecified; G40.909 Epilepsy, unspecified, not intractable, without status epilepticus; G43.909 Migraine, unspecified, not intractable, without status migrainosus; I10 Essential (primary) hypertension; J45.909 Unspecified asthma, uncomplicated; K25.9 Gastric ulcer, unspecified as acute or chronic, without hemorrhage or perforation; M19.90 Unspecified osteoarthritis, unspecified site; Z86.711 Personal history of pulmonary embolism
CPT/HCPCS: 36415; 58552; 80048; 81025; 85025; 86850; 86900; 86901; 96374; 96375; 96376; A4314; A4930; G0378; J0690; J1100; J1885; J2250; J2270; J2370; J2405; J2704; J3010; J3490; 88307; 88342; A4322; A4452; A4657; G0379; J2710; Q9968